=== PATIENT | male | born 1995 | race Asian ===

== ENCOUNTER 2018-02-15 12:25 | Inpatient (IN) | payer OTHER ==
[2018-02-15] MEDS ORDERED: Ketorolac INJ* 60 MG/2 ML VIAL IM ONE (14:31)
[2018-02-15] MEDS ORDERED: NS 0.9% 1000 ML* 1,000 ML IV ONE (14:40)
[2018-02-15] MEDS ORDERED: Ketorolac INJ* 30 MG/ML 1 ML VIAL IV PUSH ONE ×2 (14:41→15:25)
[2018-02-15 14:55] LABS: ABS Basophils 0 10^3/ul (0-0.2); ABS Eosinophils 0.1 10^3/ul (0-0.6); ABS Lymphocytes 1.9 10^3/ul (1.0-4.8); ABS Monocytes 0.7 10^3/ul (0-0.8); ABS Neutrophils 4.1 10^3/ul (1.5-7.7); ABS Nucleated RBC 0 10^3/ul; Eosinophil % 0.9 % (0-6); Hematocrit 43 % (42-52); Hemoglobin 14.8 g/dl (14.0-18.0); Lymphocyte % 28.5 % (25-47); Mean Corpuscular HGB Conc 35 g/dl (31-36); Mean Corpuscular Hemoglobin 31 pg (27-31); Mean Corpuscular Volume 89 fL (80-94); Mean Platelet Volume 8.6 um3 (7.4-10.4); Nucleated Red Blood Cells % 0; Platelet Count 186 10^3/ul (150-450); Red Blood Count 4.81 10^6/ul (4.0-5.4); Red Cell Distribution Width 13 % (10.5-15); White Blood Count 6.7 10^3/ul (3.5-10.8)
[2018-02-15 15:14] LABS: EGFR Non-African American 97.9 (>60)
[2018-02-15] MEDS ORDERED: NS 0.9% 1000 ML* 2,000 ML IV ONE (16:06)
--- NOTE | 2018-02-15 17:14 | UC ---
Upper Extremity HPI - HPI Summary HPI Summary: Patient is a 22-year-old male presenting to the ED with chief complaint of bilateral forearm pain after rockclimbing for 2 hours yesterday after not having done it for several years. He states as he began to rockclimbing he felt some pain in his bilateral forearms, but continued.. He at approximately 1 bottle of water all day and states he will could have been somewhat dehydrated. He states this never happened to him before. He has never had wrist or forearm injuries in the past. He denies any other pain or symptoms at this time. He has not taken anything for relief. Denies any headaches. He continues to eat and drink okay and is urinating well. Immunizations are up-to- date and he is otherwise healthy. - History of Current Complaint Chief Complaint: EDExtremityUpper Stated Complaint: PAIN IN BOTH UPPER EXTREMITIES Time Seen by Provider: 02/15/18 14:20 Hx Obtained From: Patient ?: No Onset/Duration: Sudden Onset Severity Initially: Severe Severity Currently: Severe Pain Intensity: 9 Pain Scale Used: 0-10 Numeric Location Of Pain: Is Discrete @ - bilateral volar forearms Aggravating Factor(s): Movement Alleviating Factor(s): Nothing Associated Signs And Symptoms: Negative: Swelling, Redness, Bruising, Numbness/ Tingling Related History: Dominant Hand Right - Risk Factors Non-Orthopedic Risk Factor: Negative DVT Risk Factors: Negative Septic Arthritis Risk Factor: Negative Compartment Syndrome Risk Factors: Pain - Allergies/Home Medications Allergies/Adverse Reactions: Allergies Allergy/AdvReac Type Severity Reaction Status Date / Time No Known Allergies Allergy Verified 02/15/18 12:49 Home Medications: Home Medications NK [No Home Medications Reported] 02/15/18 [History Confirmed 02/15/18] PMH/Surg Hx/FS Hx/Imm Hx Previously Healthy: Yes - Family History Known Family History: Positive: None - Social History Occupation: Unemployed, Student Lives: Dormitory/Roommates Alcohol Use: Daily Alcohol Amount: 2-3 beers Substance Use Type: None Smoking Status (MU): Current Some Day Smoker Review of Systems Constitutional: Negative Skin: Negative Respiratory: Negative Cardiovascular: Negative Genitourinary: Negative Motor: Decreased ROM Neurovascular: Decreased Sensation Musculoskeletal: Myalgia Neurological: Negative Is Patient Immunocompromised?: No All Other Systems Reviewed And Are Negative: Yes Physical Exam Triage Information Reviewed: Yes Appearance: Well-Appearing, No Pain Distress, Well-Nourished Vital Signs: Initial Vital Signs Temp 97.7 F 02/15/18 12:43 Pulse 73 02/15/18 12:43 Resp 16 02/15/18 12:43 BP 163/112 02/15/18 12:43 Pulse Ox 98 02/15/18 12:43 Vital Signs Reviewed: Yes Eye Exam: Normal Eyes: Positive: Conjunctiva Clear Neck exam: Normal Neck: Positive: Supple, No Lymphadenopathy Respiratory Exam: Normal Respiratory: Positive: Chest non-tender, Lungs clear Cardiovascular Exam: Normal Cardiovascular: Positive: RRR Musculoskeletal: Positive: ROM Limited @ - throughout d/t pain in the wrist Neurological Exam: Normal Neurological: Positive: Alert Psychological: Positive: Normal Response To Family Skin Exam: Normal Skin: Negative: rashes, breakdown Upper Extremity Course/Dx - Course Course Of Treatment: The patient is sent here from [facility] to evaluate for a compartment syndrome. Patient has bilateral forearm pain after rockclimbing for 2 hours yesterday. Pain with extension of the fingertips. Denies any numbness or tingling. Pain is 10/10 constant and throbbing and began last evening after completing his rockclimbing. He denies any swelling. He denies any ecchymosis or other color changes. Denies any temperature changes. On physical examination there is no discolorations and radial pulses + 2 intact bilaterally, cap refill <3. In evaluation of compartment syndrome, he has pain without paresthesias, without poikilothermia, pulses good, no paralysis or wood-like feeling on assessment and pain does not seem out of proportion d/t his recent overuse. Discussed the case with Dr. Smith who recommends CT of the bilateral arms. Dr. Norwood discussed with Luis obtaining a CT with contrast is too much contrast to assess for compartment syndrome. At this point, Dr. Smith and myself do not believe this is compartment syndrome. 3 L fluids given and 2 hours later, CPK redrawn. Patient is given Toradol 30 mg IV. Patient is signed out to Shreyas Dolan PA-C. - Differential Dx/Diagnosis Differential Diagnosis/HQI/PQRI: Other Provider Diagnoses: Rhabomyolysis; tendonitis Discharge - Sign-Out/Discharge Documenting (check all that apply): Discharge/Admit/Transfer - Discharge Plan Condition: Stable Disposition: ADMITTED TO [facility] - Billing Disposition and Condition Condition: STABLE Disposition: [facility]
[2018-02-15] MEDS ORDERED: Ondansetron INJ* 2 MG/ML VIAL IV PRN (20:44)
[2018-02-15] MEDS ORDERED: NS 0.9% 1000 ML* 1,000 ML IV SCH (20:45)
[2018-02-15] MEDS: Acetaminophen TAB* 325 MG PO PRN (22:46)
[2018-02-15 23:28] LABS: Urine Appearance Cloudy; Urine Blood Negative (Negative); Urine Color Yellow; Urine Ketones Negative (Negative); Urine Protein Negative (Negative); Urine Specific Gravity 1.024 (1.010-1.030); Urine Urobilinogen Positive (Negative)
[2018-02-16 00:10] LABS: EGFR Non-African American 100.4 (>60)
[2018-02-16] MEDS: NS 0.9% 1000 ML* 1,000 ML IV SCH ×6 (00:11→23:56)
[2018-02-16] MEDS ORDERED: NS 0.9% 1000 ML* 1,000 ML IV SCH (00:51)
[2018-02-16] MEDS: traMADol TAB* 50 MG PO PRN ×3 (01:38→23:59)
--- NOTE | 2018-02-16 01:51 | HP ---
CC: [facility] * HISTORY AND PHYSICAL: DATE OF ADMISSION: 02/15/18 PRIMARY CARE PROVIDER: [facility]. ATTENDING PHYSICIAN WHILE IN THE HOSPITAL: Michelle Yoder MD * (report dictated by Israel Serrano NP). CHIEF COMPLAINT: Forearm discomfort bilaterally. HISTORY OF PRESENT ILLNESS: Mr. Barnhart is a 22-year-old male patient, who has no medical or surgical history, who comes in to our emergency department today stating that yesterday he was at the [facility]. He does not work out that often. He states that he has not worked out in quite some time, but he went [email or web address] for 2 hours straight yesterday with intermittent breaks in between. He states that he went to bed last night. His arms were sore. It hurts even to move them and they felt swollen. He states that he was able to go to bed, but he woke up this morning. The pain was much more worse and severe in both his arms. He had no trauma to his arms, he just used them repetitively yesterday with the [email or web address]. He had no fever or chills. He said the pain was worse today, he went to [place], and they were concerned and sent him here. He states he has been noticing any discoloration in urine. He denies having any chest pain. He denies having any abdominal discomfort or any nausea associated with that. He had no trauma to the arms. He said he just was moving them repetitively and he felt sore in basically both his arms in the forearm area and they felt tender. He came in to the ED today. It was noted that he had an elevated CK of 1360, despite 3 L of fluid fluid it went up to 1671. His creatinine had remained stable, but because of the elevations despite IV fluids, we were asked to evaluate for admission. PAST MEDICAL HISTORY: Denied. PAST SURGICAL HISTORY: Denied. HOME MEDICATIONS: Denied. ALLERGIES TO MEDICATIONS: Include no known drug allergies. FAMILY HISTORY: Both his parents are healthy. SOCIAL HISTORY: He does drink about 1 to 2 beers on a daily basis. He is a [employer] student. He is studying Biology. He does say that he has smoked marijuana occasionally. He denies any other recreational drugs. REVIEW OF SYSTEMS: There is no documented fever. He denies any significant weight change. There was no double vision. He denies having any ear discharge. There is no rhinorrhea. He denies having any sore throat. There is no thyroid enlargement. He denied any chest pain. There is no orthopnea. There is no nocturnal dyspnea. He denies having any abdominal pain. There was no nausea or vomiting. No dysuria. No frequency. No seizure. No loss of consciousness. No pruritus. No skin ulcerations. Review of 14 systems completed and all others negative. PHYSICAL EXAMINATION GENERAL: At this time, Mr. Barnhart is a 22-year-old male patient, he appears well nourished, well developed. He does not appear to be in any acute distress. VITAL SIGNS: Blood pressure 122/79, pulse 58, respirations 18, O2 sat of 100% on room air, and temperature 97.7. HEENT: Head is atraumatic. Eyes: EOMs are intact. Sclerae are anicteric, not pale. Throat: Oral mucosa appears to be moist. No oropharyngeal erythema. NECK: Supple. LUNGS: Clear to auscultation. No wheezes, rales or rhonchi. HEART: Sounds S1, S2. Regular rate and rhythm. No murmurs, rubs or gallops. ABDOMEN: Soft, flat, nontender. Bowel sounds are present. EXTREMITIES: Pulses are 2+ throughout. He is able to move all 4 extremities with 5/5 strength. He does have tenderness to bilateral forearms where he does have pronation and supination. He has extension and flexion at the elbow. He is just tender along the forearm muscles bilaterally. NEUROLOGIC: He is awake, alert, oriented x3. No gross focal deficits. SKIN: Intact. DIAGNOSTIC STUDIES/LAB DATA: WBC of 6.7, RBC of 4.81, hemoglobin of 14.8, hematocrit of 43, and platelet count of 186. Sodium was 140, potassium of 3.9, chloride of 104, bicarb of 29, BUN of 13, creatinine of 0.96, glucose 95, uric acid 6, calcium of 9.0. Total bili of 0.4, AST 30, ALT 12, and alk phos 40. Initial CK was 1360, repeat CK was 1671. Myoglobin was 2089, albumin was 4.2. Old medical records reviewed. ASSESSMENT AND PLAN: Mr. Barnhart is a 22-year-old male patient coming in to the emergency department today, complains of bilateral forearm pain. On evaluation , he was found to elevated CK. He will be admitted under inpatient status for: 1. Rhabdomyolysis. I suspect that this is probably secondary to repetitive use yesterday secondary to his rock climbing. His pain is better controlled now. He said he is not having any more pain, I am going to go ahead and put him on fluids at 150 an hour, get the CKs every 6 hours, and we will continue to follow this closely and follow the kidney function. We will check every 6 hours. If the pain persists, I am going to consider getting imaging, but again there was no trauma and he is tender in bilateral forearms, which is consistent with rhabdomyolysis. 2. DVT prophylaxis. He is low risk. I will place him on SCDs. 3. Code status. Full code. 4. Fluids, electrolytes, and nutrition. Regular diet. TIME SPENT: Time spent on the admission was 60 minutes; greater than half the time was spent [id number] with the patient obtaining my history and physical, the other half time is spent going over the plan of care with the patient and implementing plan of care. I did discuss the plan of care with my attending, Dr. Yoder, she is in agreement. ISRAEL SERRANO NP [id number]/FILOMENA #: [id number] MALDONADO
[2018-02-16 06:04] LABS: ABS Basophils 0 10^3/ul (0-0.2); ABS Eosinophils 0.1 10^3/ul (0-0.6); ABS Lymphocytes 2.9 10^3/ul (1.0-4.8); ABS Monocytes 0.6 10^3/ul (0-0.8); ABS Neutrophils 3.3 10^3/ul (1.5-7.7); ABS Nucleated RBC 0 10^3/ul; Eosinophil % 1.6 % (0-6); Hematocrit 40 % (42-52); Hemoglobin 13.4 g/dl (14.0-18.0); Lymphocyte % 42.1 % (25-47); Mean Corpuscular HGB Conc 34 g/dl (31-36); Mean Corpuscular Hemoglobin 31 pg (27-31); Mean Corpuscular Volume 90 fL (80-94); Mean Platelet Volume 8.9 um3 (7.4-10.4); Nucleated Red Blood Cells % 0.1; Platelet Count 169 10^3/ul (150-450); Red Cell Distribution Width 12 % (10.5-15); White Blood Count 6.9 10^3/ul (3.5-10.8)
[2018-02-16 06:22] LABS: EGFR Non-African American 112.7 (>60)
[2018-02-16] MEDS ORDERED: Ibuprofen TAB* 800 MG PO ONE ×2 (08:04→19:06)
--- NOTE | 2018-02-16 09:50 | PN ---
Subjective Date of Service: 02/16/18 Interval History: Patient was seen and examined at bedside. Reports feeling better today. His forearm pain has improved overnight. Denies any weakness, numbness, flank pain or dysuria. He voided few times last night, urine color is back to normal. He informs me he has not been doing any physical activities for a while until he started rock climbing 2 days ago. Appetite is good, denies nausea, vomiting or abdominal pain. No fever or chills. Family History: Unchanged from Admission Social History: Unchanged from Admission Past Medical History: Unchanged from Admission Objective Active Medications: Acetaminophen (Tylenol Tab*) 650 mg PO Q4H PRN PRN Reason: FEVER/PAIN Last Admin: 02/15/18 22:46 Dose: 650 mg Sodium Chloride (Ns 0.9% 1000 Ml*) 1,000 mls @ 200 mls/hr IV PER RATE GIGI Last Admin: 02/16/18 07:38 Dose: 200 mls/hr Ondansetron HCl (Zofran Inj*) 4 mg IV Q6H PRN PRN Reason: NAUSEA Tramadol HCl (Ultram*) 50 mg PO Q6H PRN PRN Reason: PAIN Last Admin: 02/16/18 07:54 Dose: 50 mg Vital Signs - 8 hr 02/16/18 02/16/18 02/16/18 03:40 04:10 07:37 Temperature 98.2 F 97.8 F Pulse Rate 51 60 Respiratory 16 16 16 Rate Blood Pressure 109/67 112/73 (mmHg) O2 Sat by Pulse 99 99 Oximetry 02/16/18 07:54 Temperature Pulse Rate Respiratory 18 Rate Blood Pressure (mmHg) O2 Sat by Pulse Oximetry Oxygen Devices in Use Now: None Appearance: Sitting on edge of bed, appears comfortable and in NAD Eyes: No Scleral Icterus, PERRLA Ears/Nose/Mouth/Throat: Clear Oropharnyx, Mucous Membranes Moist Neck: NL Appearance and Movements; NL JVP, Trachea Midline Respiratory: Symmetrical Chest Expansion and Respiratory Effort, Clear to Auscultation Cardiovascular: NL Sounds; No Murmurs; No JVD, RRR Abdominal: NL Sounds; No Tenderness; No Distention, No Hepatosplenomegaly Extremities: No Edema, No Clubbing, Cyanosis, - - Forearms with mildtenderness to palpation, but no swelling, erythema or induration. Radial pulses equal. 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 Lines/Tubes/Other Access: Clean, Dry and Intact Peripheral IV Nutrition: Taking PO's Result Diagrams: 02/16/18 05:42 02/16/18 12:18 Additional Lab and Data: Creatinine Kinase continue to trend up with value of 2660 this afternoon. Assess/Plan/Problems-Billing Assessment: A 22 y/o male with no significant PMH, who presented to ED with bilateral forearm pain secondary to rock climbing a day earlier, who was found to have elevated CK and was admitted for pain management and aggressive hydration. - Patient Problems (1) Rhabdomyolysis Current Visit: Yes Status: Acute Priority: High Comment: - CK continues to trend up - Recieved multiple IV fluid boluses, continue hydration and monitor kidney functions - BUN/Cr has been stable - Pain controlled, Tylenol or Ultram, will hold off any additional NSAIDs - Check CK tomorrow morning, if trending down, will likely d/c to home (2) Dehydration Current Visit: Yes Status: Acute Comment: - Clinically improving (3) DVT prophylaxis Current Visit: Yes Status: Acute Comment: - Low risk, SCDs only while in bed (4) Full code status Current Visit: Yes Status: Acute Status and Disposition: Inpatient, anticipate discharge when medically stable
[2018-02-16 13:10] LABS: EGFR Non-African American 109.7 (>60)
[2018-02-16] MEDS: Acetaminophen TAB* 325 MG PO PRN (22:00)
[2018-02-17] MEDS: NS 0.9% 1000 ML* 1,000 ML IV SCH ×3 (05:09→19:26)
[2018-02-17 06:10] LABS: EGFR Non-African American 95.6 (>60)
[2018-02-17] MEDS: Acetaminophen TAB* 325 MG PO PRN (15:00)
--- NOTE | 2018-02-17 16:50 | PN ---
Subjective Date of Service: 02/17/18 Interval History: Patient was seen and examined earlier today, then again this afternoon with presented at bedside. Patient continues to improve clinically despite increasing CK values. An orthopedic consult was obtained, ruling out possibility of compartment syndrome. Left forearm is virtually pain free, right forearm with mild dorsal pain with hand gripping. Denies fever, chills, flank or back pain. Family History: Unchanged from Admission Social History: Unchanged from Admission Past Medical History: Unchanged from Admission Objective Active Medications: Acetaminophen (Tylenol Tab*) 650 mg PO Q4H PRN PRN Reason: FEVER/PAIN Last Admin: 02/17/18 15:00 Dose: 650 mg Sodium Chloride (Ns 0.9% 1000 Ml*) 1,000 mls @ 250 mls/hr IV PER RATE GIGI Last Admin: 02/17/18 14:50 Dose: 250 mls/hr Ondansetron HCl (Zofran Inj*) 4 mg IV Q6H PRN PRN Reason: NAUSEA Tramadol HCl (Ultram*) 50 mg PO Q6H PRN PRN Reason: PAIN Last Admin: 02/16/18 23:59 Dose: 50 mg Vital Signs - 8 hr 02/17/18 02/17/18 11:22 11:31 Temperature 98.0 F Pulse Rate 64 Respiratory 17 Rate Blood Pressure 110/62 (mmHg) O2 Sat by Pulse 97 Oximetry Oxygen Devices in Use Now: None Appearance: Appears comfortable and in NAD Eyes: No Scleral Icterus, PERRLA Ears/Nose/Mouth/Throat: Clear Oropharnyx, Mucous Membranes Moist Neck: NL Appearance and Movements; NL JVP, Trachea Midline Respiratory: Symmetrical Chest Expansion and Respiratory Effort, Clear to Auscultation Cardiovascular: NL Sounds; No Murmurs; No JVD, RRR Abdominal: NL Sounds; No Tenderness; No Distention Extremities: No Edema, No Clubbing, Cyanosis, - - Right forearm with mild dorsal tenderness and swelling. Radial pulse intact. Skin: No Rash or Ulcers Neurological: Alert and Oriented x 3, NL Sensation, NL Muscle Strength and Tone Result Diagrams: 02/16/18 05:42 02/17/18 05:33 Additional Lab and Data: Creatinine Kinase continue to trend up with value of 4100 this afternoon. Microbiology and Other Data: . Diagnostic Imaging: . EKG Data: . Assess/Plan/Problems-Billing Assessment: A 22 y/o male with no significant PMH, who presented to ED with bilateral forearm pain secondary to rock climbing a day earlier, who was found to have elevated CK and was admitted for pain management and aggressive hydration. - Patient Problems (1) Rhabdomyolysis Current Visit: Yes Status: Acute Priority: High Comment: - CK continues to trend up - Recieved multiple IV fluid boluses, continue hydration and monitor kidney functions - BUN/Cr has been stable - Pain controlled, Tylenol or Ultram, will hold off any additional NSAIDs - Orthopedic consult appreciated, ruled out compartment syndrome - Had a long discussion with patient, would like to keep him admitted until we see CK trending down. - Patient agreed to plans (2) Dehydration Current Visit: Yes Status: Acute Comment: - Clinically improving - Continue IVF hydration, monitor urine output and BUN (3) DVT prophylaxis Current Visit: Yes Status: Acute Comment: - Low risk, SCDs only while in bed (4) Full code status Current Visit: Yes Status: Acute Status and Disposition: Inpatient, anticipate discharge when medically stable
--- NOTE | 2018-02-17 20:38 | CONS ---
CC: PCP, [facility] * CONSULTATION REPORT: DATE OF CONSULT: 02/17/18 CHIEF COMPLAINT: Bilateral forearm pain. HISTORY OF PRESENT ILLNESS: Briefly, Gonzalo is a 22-year-old right-hand dominant male who went rock climbing on Thursday. He rock climbed for about 2 hours or so. He took some breaks. He states that later that evening, he was very sore in his forearms. He then woke up the next morning with a sharp pain that radiated down his forearm from the antecubital fossa down to the hands. This has happened 3 to 4 times since Thursday. He was having persistent pain, had some swelling. He went to the urgent care and then in the ER, was diagnosed with rhabdomyolysis and forearm pain. They have been following his CK serially and noticed that it is increasing. I was consulted this morning because his CK went from 1671 to 3800. He denies any numbness or tingling. No fevers or chills. He is stating his pain is controlled with oral pain medication. He has not been taking any NSAIDs. He has been admitted for IV saline. His labs had been checked periodically throughout the admission. Currently, he is brushing his teeth. He is moving around. He is going to graduate from [employer] this weekend and then home. PAST MEDICAL HISTORY: Negative. PAST SURGICAL HISTORY: Ear surgery as a child in the left ear. MEDICATIONS: On admission, he has got: 1. Tramadol. 2. Normal saline. 3. Tylenol. 4. Zofran. Otherwise, no home medications. ALLERGIES TO MEDICATIONS: NKDA. FAMILY HISTORY: Both his parents are healthy. No medical issues. SOCIAL HISTORY: He is a [employer] student. 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 He does vape cigarettes. He denies any other tobacco. He drinks 1 to 2 beers every day. He is going to move to [place] next week. REVIEW OF SYSTEMS: A 14-point review of systems was reviewed with the patient, significant for bilateral forearm pain. Denies numbness or tingling. No fevers or chills. No loss of consciousness or headaches. Otherwise, remainder of systems is negative. PHYSICAL EXAM: Vitals: Temperature of 97.8, pulse of 58, respiratory rate 18, O2 is 97% on room air, blood pressure 103/65. He is in no acute distress. He is well developed and well nourished. He is alert and oriented x3. He has pleasant mood and normal affect. He walks with a normal gait. Examination of his bilateral forearm demonstrates that he has an IV in the right antecubital fossa. He is able to flex his elbow, wrist, and hand. He is able to do thumbs up, okay sign. He has difficulty crossing fingers in the right side but he is able to do it. He is able to make a fist, although he has some swelling and now fully extend. He is sensate to light touch about the first dorsal webspace and small fingers bilaterally. He has 2+ radial pulse. 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 He is able to forward flex his arms above the head. No other injuries elsewhere. No pain on passive stretch. He is able to actively flex and extend his digits. His bilateral forearms are soft and compressible with mild discomfort. DIAGNOSTIC STUDIES/LAB DATA: Labs dated 02/16/18 demonstrated white count 6.9, hematocrit of 40, platelet count within normal limits. BMP today demonstrates sodium of 140, potassium 3.8, chloride 112, carbon dioxide 25, BUN 11, creatinine 0.98, glucose of 108, calcium 8.1. CK of 3868, which is up from 1671 two days ago. Urine that was checked on 02/15/18 was negative with exception of urobilinogen. ASSESSMENT AND PLAN: He was rock climbing at [employer] on Thursday. He eventually caused rhabdomyolysis from his exertion. At this time, he does not have any signs or symptoms of compartment syndrome. He has no pain on passive stretch. He does have soft compressible forearm. His pain is slowly resolving. At this point, I would be careful about using nonsteroidal anti-inflammatory drugs due to possible kidney damage. His creatinine is slowly trending up, but it is still considered stable. He should be getting IV fluids. This may still hurt for several weeks, afterwards I would tell him to be careful with gripping and lifting. He is likely going to be admitted for another day. I would tell him to ice or heat. I would rest his forearms. He is not allowed to carry, push, or pull just yet. He is going to leave town shortly after graduation and therefore will not be able to follow up with me in the office. I did tell him that there are hand surgeons in [place] that are capable of handling this. I told him to be very careful; I would not do any excessive activities. From my standpoint, I do not see any signs or symptoms of compartment syndrome and I would recommend fluid hydration, conservative treatment until he is optimized. I anticipate he will be okay to go to graduation in a few days. We did talk about if the symptoms get worse or he has worsening symptoms, we would briefly talk about compartment release, although I do not think that this is an issue for him now. I will check on him again later today to make sure that exam is continuing to stay the same and he is okay with the plan. [id number]/CPS #: [id number] [id number]
[2018-02-18] MEDS: NS 0.9% 1000 ML* 1,000 ML IV SCH ×3 (03:49→08:07)
[2018-02-18] MEDS: Acetaminophen TAB* 325 MG PO PRN ×2 (03:57→08:26)
[2018-02-18 06:38] LABS: EGFR Non-African American 102.9 (>60)
[2018-02-18 08:14] VITALS: BP 116/77
--- NOTE | 2018-02-18 11:45 | ED ---
Severiano Randhawa Gabriel, scribed for Odell Smith MD on 02/15/18 at 1456 . Progress - Progress Note Progress Note: This patient is a 22 year old M presenting to [facility] c/o bilateral forearm pain that began last night as he was going to bed. Pt rocked climbed yesterday for 2 hours after not doing it for several years. He only drank one bottle of water during and began having severe pain that night which lasted into the morning. He was seen by [facility] and sent her to r/o compartment syndrome. Patient reports general body soreness. Patient denies swelling. Pain is exacerbated by any movement of the hands. VITAL SIGNS: Reviewed. GENERAL: Patient is a well-developed and nourished male who is lying comfortable in the stretcher. Patient is not in any acute respiratory distress. HEAD AND FACE: No signs of trauma. No ecchymosis, hematomas or skull depressions. No sinus tenderness. EYES: PERRLA, EOMI x 2, No injected conjunctiva, no nystagmus. EARS: Hearing grossly intact. Ear canals and tympanic membranes are within normal limits. MOUTH: Oropharynx within normal limits. NECK: Supple, trachea is midline, no adenopathy, no JVD, no carotid bruit, no c- spine tenderness, neck with full ROM. CHEST: Symmetric, no tenderness at palpation LUNGS: Clear to auscultation bilaterally. No wheezing or crackles. CVS: Regular rate and rhythm, S1 and S2 present, no murmurs or gallops appreciated. ABDOMEN: Soft, non-tender. No signs of distention. No rebound no guarding, and no masses palpated. Bowel sounds are normal. EXTREMITIES: good pulses, normal sensation, TTP in the forearms to the tip of his fingers, good capillary refill NEURO: Alert and oriented x 3. No acute neurological deficits. Speech is normal and follows commands. SKIN: Dry and warm, no shinny skin, not leathery Course/Dx - Course Course Of Treatment: Elizabeth JEONG will continue with management for this patient. I believe that the patient is in rhabdomyolysis therefore the patient will be given ibuprofen fluids IV. - Diagnoses Provider Diagnoses: Rhabdomyolysis Discharge - Sign-Out/Discharge Documenting (check all that apply): Discharge/Admit/Transfer - Discharge Plan Condition: Stable Disposition: ADMITTED TO [facility] - Billing Disposition and Condition Condition: STABLE Disposition: [facility] [place] The documentation as recorded by the Severiano bacon Gabriel accurately reflects the service I personally performed and the decisions made by me, Odell Smith MD.
--- NOTE | 2018-02-20 12:55 | DS ---
DISCHARGE SUMMARY: DATE OF ADMISSION: 02/15/18 DATE OF DISCHARGE: 02/18/18 PATIENT OF: Michelle Yoder MD ATTENDING PHYSICIAN: Dr. Teofilo Thomas * (DICTATED BY JEAN-PAUL HDZ) ADMISSION DIAGNOSES: 1. Bilateral forearm pain. 2. Rhabdomyolysis. DISCHARGE DIAGNOSES: 1. Bilateral forearm pain. 2. Rhabdomyolysis. ADMITTING PHYSICIAN: Michelle Yoder MD CONSULTATION: Lito Mar MD, from Orthopedic. PROCEDURES: None. HISTORY OF PRESENT ILLNESS: Gonzalo is a pleasant 22-year-old gentleman with no significant past medical or surgical history, who presented to the emergency room on 02/15/18 with bilateral forearm pain. Patient went the day before presentation to the [facility] and he started working out by climbing rocks for a period of 2 hours. He notes that he took some intermittent breaks and was drinking enough water in between. He went home, and on the next day, he noticed significant discomfort at both forearms that felt very swollen. He states that he was not able to tolerate the pain to the point that he presented to the emergency room for evaluation. He did notice some darker coloration of his urine, but denied any chest pain, abdominal discomfort, or any other associated symptoms. During his ED evaluation, he was noted to have elevated CK of 1360 despite 3 L of IV fluid resuscitation and then it went up to 1671, for which a decision was made to keep him for observation. HOSPITAL COURSE: The patient was admitted under hospitalist services with diagnosis of rhabdomyolysis. A serial check of his creatine kinase was done that continued to climb up on a daily basis. Despite very adequate hydration with multiple IV fluid boluses and a continuous rate of 250 cc/hour, patient continued to have elevated creatine kinase on frequent checks. He continued to have some discomfort in the forearms, but it got better on the following day of admission. An orthopedic consult was obtained and the patient was evaluated and there was no evidence or suggestion indicating any compartment syndrome risk. A series of creatine kinase was obtained on the morning and evening basis. Patient essentially peaked at value of 4179 and was able to ambulate, and repeated BUN and creatinine checks revealed good creatinine clearance with no evidence of any kidney injury. He was well hydrated and he desired to go home after 3 days of admission. On exam, on discharge morning, he was comfortable with no significant pain or swelling to the forearms. He was intact neurologically and sensation was normal. He denied any chest pain or shortness of breath, back or flank pain, or discoloration of urine. He will be discharged to home on no medication, just Tylenol as needed for pain, and he is planning to see his primary care provider back in [place] next week for a followup. PROBLEM LIST: Rhabdomyolysis with elevated creatine kinase. Symptoms resolved and the creatine kinase reached its peak and started declining with aggressive IV fluid hydration and rest. JEAN-PAUL HDZ [id number]/[facility] #: [id number] [place]
== END 2018-02-18 11:00 | disposition home or self-care (01) | DRG 351 ==
LOC: ED 12:25 → MED 20:42 → OBSVTOIN 02-16 14:11
PROVIDERS: ADMIT Pediatrics; ATTEND Internal Medicine
DX: M62.82 Rhabdomyolysis (principal); E86.0 Dehydration; Z72.89 Other problems related to lifestyle; F12.90 Cannabis use, unspecified, uncomplicated
CPT/HCPCS: 36415; 80048; 80053; 81003; 82550; 83874; 84550; 85025; 85652; 86141; 87086; 99284; 99406; A9270-GY; J1885